=== PATIENT | male | born 1975 | race Caucasian/White ===

== ENCOUNTER → 2017-04-28 | Outpatient (CLI) | payer BC, OTHER ==
--- NOTE | 2017-04-28 14:05 | DIAGNOSTIC IMAGING REPORT ---
L KNEE 3 VIEWS HISTORY: 41 years-old Male LEFT KNEE PAIN acute left knee pain. Initial exam COMPARISON: None available TECHNIQUE: 3 views of the left knee FINDINGS: There is no acute fracture, dislocation or significant degenerative changes. There is mild marginal spurring of the patella. There is moderate soft tissue swelling about the knee with moderate joint effusion. No intra-articular loose body identified. IMPRESSION: 1. No acute fracture or dislocation. 2. Moderate soft tissue swelling about the knee with moderate sized joint effusion. The above report was generated using voice recognition software. It may contain grammatical, syntax or spelling errors. Electronically signed by: Tarik Dupont M.D. 04/28/2017 2:03 PM Dictated Date/Time: 04/28/2017 2:02 PM
== END | disposition home or self-care (01) ==
LOC: C.RDSM 13:50
PROVIDERS: ATTEND Family Medicine
DX: M25.562 Pain in left knee (principal); M25.462 Effusion, left knee; M79.89 Other specified soft tissue disorders